=== PATIENT | female | born 1995 | race Caucasian/White ===

== ENCOUNTER → 2018-09-04 15:58 | Outpatient (CLI) | payer MEDICAID, SELFPAY ==
[2018-09-04 19:04] LABS: Chlamydia Trachomatis by PCR Negative (Negative); Neisserai gonorrhoeae by PCR Negative (Negative); Probe Check PASS; Sample Adequacy Control PASS; Specimen Processing Control PASS
[2018-09-09 12:49] LABS: HPV Reflexed? NOT INDICATED
== END ==
PROVIDERS: Visit Provider Obstetrics & Gynecology
DX: Z12.4 Encounter for screening for malignant neoplasm of cervix (principal); Z11.3 Encounter for screening for infections with a predominantly sexual mode of transmission; Z34.81 Encounter for supervision of other normal pregnancy, first trimester
CPT/HCPCS: 87491; 87591; 88175; G0145

== ENCOUNTER → 2018-09-19 15:25 | Outpatient (CLI) | payer MEDICAID, SELFPAY ==
[2016-06-07 07:05] VITALS: BMI 33.6
[2018-09-19 17:37] LABS: Absolute Lymphocyte Count 2.01 X10^3/ul (0.83-4.51); Absolute Neutrophil Count 8.5 X10^3/uL (2.0-7.7); Basophil# 0.02 X10^3/uL; Basophil% 0.2 % (0-1); Eosinophil# 0.49 X10^3/uL; Eosinophils% 4.2 % (0-5); Hematocrit 37.1 % (37-47); Hemoglobin 12.8 g/dl (12.0-15.0); Lymphocyte # 2.01 X10^3/ul (4.0); Lymphocyte % 17.3 % (19-41); Mean Corp Hgb Conc 34.5 g/gl (32-36); Mean Corpuscular Hgb 31.8 pg (27.0-32.0); Mean Corpuscular Volume 92.3 fL (81-99); Monocyte# 0.56 X10^3/uL; Monocyte% 4.8 % (0-10); Neutrophil # 8.52 X10^3/uL (2.7-7.7); Neutrophil % 73.3 % (47-70); Platelet Count 222 K/mm3 (150-450); RBC Distribution Width CV 13.5 % (11.6-14.6); RBC Distribution Width SD 45.2 fl (35.1-43.9); Red Blood Count 4.02 M/mm3 (4.2-5.4); White Blood Count 11.6 K/mm3 (4.4-11.0)
[2018-09-19 17:39] LABS: POSITIVE COUNT NO; POSITIVE DIFFERENTIAL NO; POSITIVE MORPHOLOGY NO
[2018-09-19 17:50] LABS: Color, Urine Yellow (Yellow); Glucose, Dipstick Normal (Normal); Ketone-Dipstick Negative (Negative); Leukocyte Esterase-Dipstick 25 /ul (Negative); Nitrite-Dipstick Negative (Negative); Occult Blood-Urine 25 /ul (Negative); Protein-Dipstick Negative (Negative); Specific Gravity, Urine 1.005 (1.002-1.030); Urine Bilirubin Dipstick Negative (Negative); Urine Clarity Clear (Clear); Urine Urobilinogen Normal (Normal)
[2018-09-19 17:56] LABS: Amphetamine Urine VISTA NEGATIVE (<1000 ng/mL); Barbiturate Urine VISTA NEGATIVE (< 200 ng/mL); Benzodiazepine Urine VISTA NEGATIVE (< 200 ng/mL); Cocaine Urine VISTA NEGATIVE (< 300 ng/mL); Ecstacy Urine VISTA NEGATIVE (< 500 ng/mL); Methadone Urine VISTA NEGATIVE (< 300 ng/mL); PCP Urine VISTA NEGATIVE (< 25 ng/mL); THC Urine VISTA NEGATIVE (< 50 ng/mL); Vista UDS pH Range 6
[2018-09-19 17:57] LABS: Thyroid Stim Hormone (TSH) 1.39 uIU/mL (0.358-3.74)
[2018-09-19 18:34] LABS: HIV - WCH Non-Reactive (Nonreactive)
[2018-09-21 08:27] LABS: HEPATITIS B SURFACE AG Negative (Negative); Hep C Antibodies <0.1 s/co ratio (0.0-0.9)
[2018-09-22 03:32] LABS: Prenatal RPR NONREACTIVE (NONREACTIVE)
== END ==
PROVIDERS: Visit Provider Obstetrics & Gynecology
DX: Z34.82 Encounter for supervision of other normal pregnancy, second trimester (principal)
CPT/HCPCS: 36415; 80307; 81002; 84443; 85025; 86703; 86762; 86803; 87340

== ENCOUNTER → 2018-12-29 10:45 | Outpatient (CLI) | payer MEDICAID, SELFPAY ==
[2018-12-29 14:28] LABS: Glucose Challenge Gest 1H 50g 146 mg/dL (70-140)
[2018-12-29 14:48] LABS: Hematocrit 31.5 % (37-47); Hemoglobin 10.5 g/dL (12.0-15.0); Mean Corp Hgb Conc 33.3 g/dL (32-36); Mean Corpuscular Hgb 32.5 pg (27.0-32.0); Mean Corpuscular Volume 97.5 fL (81-99); Mean Platelet Vol. 14.1 fl (6.2-12.0); Platelet Count 193 K/mm3 (150-450); RBC Distribution Width SD 46.5 fl (35.1-43.9); Red Blood Count 3.23 M/mm3 (4.2-5.4)
== END ==
PROVIDERS: Visit Provider Obstetrics & Gynecology
DX: Z34.83 Encounter for supervision of other normal pregnancy, third trimester (principal)
CPT/HCPCS: 36415; 82950; 85027

== ENCOUNTER → 2019-02-15 12:15 | Outpatient (CLI) | payer MEDICAID, SELFPAY ==
[2016-06-07 07:05] VITALS: BMI 33.6
== END ==
PROVIDERS: Referring Provider Obstetrics & Gynecology; Visit Provider Obstetrics & Gynecology
DX: Z36.85 Encounter for antenatal screening for Streptococcus B (principal)
CPT/HCPCS: 87081

== ENCOUNTER 2019-03-19 14:50 | Inpatient (IN) | payer MEDICAID, SELFPAY ==
[2016-06-07 07:05] VITALS: BMI 33.6
[2019-03-19 15:06] VITALS: BMI 35.6
[2019-03-19] MEDS: Lactated Ringers 1,000 ML 50 ML IV (15:25)
[2019-03-19 15:51] LABS: Absolute Lymphocyte Count 3.03 X10^3/uL (0.83-4.51); Absolute Neutrophil Count 11.9 X10^3/uL (2.0-7.7); Basophil# 0.06 X10^3/uL; Basophil% 0.4 % (0-1); Eosinophil# 0.27 X10^3/uL; Eosinophils% 1.7 % (0-5); Hematocrit 31.2 % (37-47); Hemoglobin 10.4 g/dL (12.0-15.0); Lymphocyte # 3.03 X10^3/ul (4.0); Mean Corp Hgb Conc 33.3 g/dL (32-36); Mean Corpuscular Hgb 31.2 pg (27.0-32.0); Mean Corpuscular Volume 93.7 fL (81-99); Monocyte# 0.65 X10^3/uL; Monocyte% 4.1 % (0-10); NRBC Flagged by Analyzer 0 % (0-5); Neutrophil # 11.86 X10^3/uL (2.7-7.7); Neutrophil % 74.3 % (47-70); Platelet Count 229 K/mm3 (150-450); RBC Distribution Width CV 13.5 % (11.6-14.6); RBC Distribution Width SD 45.6 fl (35.1-43.9); Red Blood Count 3.33 M/mm3 (4.2-5.4)
[2019-03-19] MEDS: Oxytocin 30 units/NS 500 ml 30 UNITS/500 ML IV.SOLN IV (16:00)
[2019-03-19 16:18] LABS: AST(SGOT) 12 U/L (15-37); Alanine Aminotransfer ALT/SGPT 9 U/L (13-56); Creatinine, Serum 0.64 mg/dL (0.55-1.02); EST Glomerular Filtration Rate 121 mL/min (>60); Est Glom Filt Rate - Afr Amer 146 mL/min (>60); Estimated Creatinine Clearance 113.09 ml/min
--- NOTE | 2019-03-19 16:18 | HP.PCM_ITS ---
History and Physical Date of Admission: 03/19/19 - 40 4/7 wk SROM HISTORY AND PHYSICAL EXAM History of this : 23 yo female Ab0 with EDC 03/15/2019 by 14 weeks 5 days Ultrasound, presents to Labor and Delivery for induction of labor. SROM at 40 4/7 wk EGA with ROM this afternoon. Clear fluid, gush of fluid en route to appt today. care remarkable for 1.) Prefers MD for delivery 2.) Abn Glucola, 146, 3hr GTT is NORMAL 3.) Anemic 4.) STERILIZATION REQUEST 5.) ALLERGIC to PCNs!! 6.) Smoker, ATQ. 7.) LGSIL pap at NOB appt 8.) MSAFP and CF testing declined, 9.) Gestational HTN with prior . 10.) Vitamin D deficiency, prior 11.) Precipitous labor and delivery with her first baby 12.) Pt had a sibling who was still born and had Down Syndrome Pertinent Past Medical History: Breast/Ovarian/Colon Cancers - Sister had cervical cancer, mom had recent colonoscopy Infections - Chicken pox Illnesses - none Accidents - no injuries of consequence History of Abnormal PAPS - Denies Hospitalizations - Childbirth SURGICAL HISTORY: 1. Tooth extraction at age 10-11 MENSTRUAL HISTORY: LMP Known?- Yes Amount/Duration - 1-2, Regularity - Irregular, LMP - 06/16/18, Age Onset Menarche - 12 PAST PREGNANCIES: Total Pregnancies - 3; Full Term Pregnancies - 2; Premature - 0; Abortions, Induced - 0; Abortions, Spontaneous - 0; Ectopics - 0; Multiple Births - 0; Living Children - 2 FAMILY HISTORY: Mother - FH: Diabetes mellitus type 1; Sister - Neoplasm of cervix; Maternal Grandparent - FH: Hypertension; SOCIAL HISTORY: Alcohol Use - denies drinking Smoking - smoker but trying to quit! 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 Illicit Drug Use - denies use of street drugs Sexual Activity - [employer] Residence - Lives with SO Place of - [place], [place] Spouse-Sig Other Name - Teofilo Smith Spouse-Sig Other Occupation - [employer] Children Name(s) - Kaylyn Lei Control - Allergies: Penicillins Medications: During - Vitamin D3 1,000 unit capsule; Flagyl 500 mg tablet; Renata 0.35 mg tablet; Flagyl 500 mg tablet; RepHresh vaginal gel; metronidazole 0.75 % vaginal gel; + DHA 28 mg iron-800 mcg-200 mg combo pack; Probiotic 20 billion cell capsule; ferrous sulfate 325 mg (65 mg iron) tablet Review of Systems: Non-contributory PHYSICAL EXAMINATION General Appearance: 23 yo female in no acute distress Vital Signs: AF, VSS Lungs: Regular rate and rhythm. Breasts: deferred Abdomen: gravid Pelvis: Cervix: 3/50/-3 Positive pool, positive NTZ. Presentation: cephalic Fetus: Size: AGA Movement: present Heart: present Category I tracing. 130s-140s avg variability and accels. to intermittent tracing due to maternal movement. UCs q 3-4 mins. Impression /Plan: Intrauterine . 40 4/7 wk Gross ROM noted on exam in ofc. Admit for Pitocin augmentation of labor.
[2019-03-19 17:16] LABS: International Normalized Ratio 1.1; Prothrombin Time (Protime)PT. 13.8 SECONDS (11.7-14.9)
[2019-03-19 17:17] LABS: Partial Thromboplast Time 30.7 Seconds (24.1-36.2)
[2019-03-19 17:39] LABS: Protein, Urine (Random) 40.6 mg/dL (<11.9); Protein:Creat Ratio 1410 mg/g CRE (0-200)
--- NOTE | 2019-03-19 18:19 | PN_ITS ---
Progress Note S: Rates UC pain 3/10, denies need for medication or epidural at this time; mother bedside and supportive; had previously stated preference for MD for delivery, but now OK w/CNM as prefers female for delivery; denies SORIANO, visual changes, epigastric pain or nausea O: BPs ranging from 130s/80s to low 160s/90s Labs: 03/19/19 15:25: WBC 16.0 H, RBC 3.33 L, Hgb 10.4 L, Hct 31.2 L, MCV 93.7, MCH 31.2, MCHC 33.3, RDW Std Deviation 45.6 H, RDW Coeff of Bronwyn 13.5, Plt Count 229, Immature Gran % (Auto) 0.500, Neut % (Auto) 74.3 H, Lymph % (Auto) 19.0, Metcalfe % (Auto) 4.1, Eos % (Auto) 1.7, Baso % (Auto) 0.4, Absolute Neuts (auto) 11.9 H, Absolute Lymphs (auto) 3.03, Nucleated RBC % 0 03/19/19 15:25: Blood Type A POSITIVE, Antibody Screen NEGATIVE 03/19/19 15:25: PT 13.8, INR 1.1, APTT 30.7 03/19/19 15:25: Creatinine 0.64, Estim Creat Clear Calc 113.09, Est GFR (MDRD) Af Amer 146, Est GFR (MDRD) Non-Af 121, Uric Acid 5.0, AST 12 L, ALT 9 L 03/19/19 17:10: U Random Total Protein 40.6 H, Urine Creatinine 28.80, Protein/Creatinin Ratio 1410 H FHTs: 125 baseline, moderate variability, with accels, no decels UCs: Q 2-3 Pitocin: 4Mu Cervix: 4/70/-3 per RN at 1800 Reflexes 1+ bilateral lower extremities, no clonus A: 23 yo at 40w4 d by 14 weeks 5 days Gestational hypertension Early labor Group B negative A pos, negative antibodies Cat 1 FHTs SROM at approx 1330 this afternoon - 5+ hours P: Dr. Gutierrez aware of BPs and has reviewed labs Close monitoring, BPs Q 15 Anticipated vaginal delivery
[2019-03-20] VITALS (7 sets, daily range): BP systolic 121–149; BP diastolic 69–85; PULSE 82–91; RESP 14–17; TEMP 36.3–36.7
[2019-03-20] MEDS: Carboprost Tromethamine 250 MCG/ML Ampul IM (00:24)
[2019-03-20] MEDS: Oxytocin 30 units/NS 500 ml 30 UNITS/500 ML IV.SOLN 999 UNITS IV (00:24)
--- NOTE | 2019-03-20 00:46 | PCM.PN.BLA ---
Progress Note This is a late entry for 3175 S: Feeling pressure, UTP w/contractions; denies s/s preeclampsia; using nitrous oxide for pain control, moderately effective, coping well O: BP 174/98, P 98, T 98.0F, R 24 FHTs: 115 baseline, moderate variability, with accels, no decels UCs: Q 2-3 minutes Cervix: 7.5/80/-2 A: Active labor, rapidly progressing Gestational hypertension, pressures increasing Cat 1 FHTs O: Dr. Gutierrez notified, hypertension protocol initiated Anticipate vaginal delivery within the hour
--- NOTE | 2019-03-20 00:56 | PCM.OPRPT ---
Vaginal Delivery Presented to unit previous afternoon c/o SROM at approx 1330 Method of Induction: Pitocin Amniotic Membrane Rupture Type: Spontaneous at home Rupture of Membrane time: 1330 03/19/2019 Amniotic Fluid Description: Clear Final BRIGIDA: 03/15/19 Gestational age: 40 Weeks and 5 Days Date of Procedure: 03/20/19 Pre-Operative Diagnosis: SROM; Active labor; Gestational hypertension Post-Operative Diagnosis: /rapid 2nd stage/mild shoulder dystocia; Gestational hypertension Surgery/ Procedure Performed: Spontaneous Vaginal Delivery Type of Anesthesia: None Description of Procedure: CTSP when she was 9.5/100/+1; Dr. Gutierrez notified of rising BPs and imminent delivery, enroute at this time; pt progressed rapidly to complete, with rapid of head and restitution from OA to ELINA; mild shoulder dystocia < 30 seconds, resolved with HOB down and Ora; infant placed on mothers abdomen, dried and stimulated, APGARs 8/9; cord clamped x 2 by CNM and cut by grandmother of under CNM supervision; placenta delivered quickly, spontaneously, intact, Pizarro mechanism, 3-vessel cord, central insertion; brisk bleeding noted, controlled with fundal massage, IV Pitocin bolus, and hemabate IM given by RN upon CNM order; subsequent manual exploration of uterus revealed no retained clots, firm lower segment; minor abrasion noted to posterior vaginal wall, no repair needed; EBL 300ml Raytec and instrument count correct x 2 with RN Presentation: Vertex, ELINA Placental Delivery Description: Spontaneous Placenta Disposition: [facility] Cord Vessel Description: 3 Vessels Cord Entanglement: None Estimated Blood Loss: 300 A gender: Male (1 minute): 8 (5 minute): 9 Episiotomy Description: None Laceration: None - minor posterior vaginal wall abrasion, hemostatic Medications given after delivery: IV Pitocin, IM Hemabate Complications: None - Gestational hypertension; Rapid second stage, mild shoulder dystocia <30 seconds, resolved w/HOB down and Ora
--- NOTE | 2019-03-20 01:21 | DCINST_ITS ---
Discharge Diet: No Restrictions Discharge Activity: Return to Normal Activity, No Restrictions, May Drive May resume sexual activity in: 6-8 weeks Weight Bearing Status: Weight bearing as tolerated Lifting Restrictions: Nothing heaver than the baby for 2 weeks Additional Activity Instructions:: Minimal cooking, cleaning, shopping or long car trips for two weeks; try to get at least 8 hours of sleep in 24 hours for the first two weeks - sleep when the baby sleeps Call your doctor if your incision/area has: Continuous Slow Oozing, Sudden Increased Bleeding, Increased Pain/ Swelling, Increased Redness, Foul Smelling Discharge Call your doctor if you observe: Fever of 101 or Higher, Coldness, Increased Pain, Inability to urinate, Inability to have a bowel movement, Using more than one pad per hour, Shortness of breath, Fainting spells, Chest pain, Increased palpitations (irregular heartbeat), Calf discomfort, Uncontrolled pain Additional Instructions: If you experience any of the following, contact your healthcare provider. * Bleeding that soaks a pad every hour for 2 hours * Fever 100.4 or higher * Unrelieved incision or abdominal pain * Swelling, redness, discharge or bleeding from your incision or episiotomy site * Your incision begins to separate * Problems urinating (including inability to urinate or burning while urinating). * Visual changes * Severe headache * Flu-like symptoms * Pain or redness in one of both of your breasts * Pain, warmth, tenderness or swelling in your legs, especially the calf area * Frequent nausea and vomiting * Symptoms of depression or anxiety If you experience any of the following, call 911 or go to the nearest Emergency Room. * Chest pain * Problems breathing * Seizure activity * Partial or complete paralysis of a body part, slurred speech, weakness or drooping of the face, or a sudden inability to walk or hold your balance Allergies/Adverse Reactions: Allergies Penicillins Adverse Reaction (Verified 03/19/19 15:18) Upset Stomach in childhood Medications to take at Discharge Ferrous Sulfate 324 mg PO DAILY 05/07/16 Vits [Prenatabs FA] 1 tablet PO DAILY 05/07/16 Please Follow Up With: Serena Jackson CNM When: 1 Week for blood pressure check; 6 weeks for checkup Primary Care Physician: Care Physician,No Primary [Primary Care Provider] - Test Results: Test results from this visit will be discussed in further detail at your follow- up appointment, if applicable. Proposed Discharge Date: 03/22/19
[2019-03-20] MEDS: 0.9% Saline Lock 10 ML Syringe IV (03:00)
--- NOTE | 2019-03-20 03:25 | NURSING ---
Cecelia MILLER requesting for pt BP to be obtained every hour after recovery. this RN to follow verbal orders.
[2019-03-20 04:44] LABS: Hematocrit 32.4 % (37-47); Hemoglobin 11.2 g/dL (12.0-15.0); Mean Corp Hgb Conc 34.6 g/dL (32-36); Mean Corpuscular Hgb 32.3 pg (27.0-32.0); Mean Corpuscular Volume 93.4 fL (81-99); POSITIVE COUNT YES; Platelet Count 256 K/mm3 (150-450); RBC Distribution Width CV 13.3 % (11.6-14.6); RBC Distribution Width SD 44.8 fl (35.1-43.9); Red Blood Count 3.47 M/mm3 (4.2-5.4)
[2019-03-20 04:48] LABS: Scan Indicated on CBC? Y/N YES- FLAGS NOTED; White Blood Count 33.8 K/mm3 (4.4-11.0)
[2019-03-20 05:21] LABS: Differential Comment SCANNED
--- NOTE | 2019-03-20 09:00 | PCM.PN.OB ---
Subjective: Pain well controlled, tolerating diet, passing flatus, going well; mother bedside and supportive; denies SORIANO, visual changes, nausea or epigastric pain Objective: AVSS, BPs mildly elevated Breasts soft, nipples atraumatic Fundus firm, midline, u/2, lochia scant; abdomen non tender Perineum with minimal edema, no redness or bruising noted - Physical Exam Vitals/I&O's: Vital Signs Temp Pulse Resp BP 98.1 F 89 16 126/69 H 03/20/19 08:15 03/20/19 08:15 03/20/19 08:15 03/20/19 08:15 Oxygen Delivery Method Room Air Weight: 201 lb 8.04 oz Body Mass Index (BMI) 35.6 Intake and Output for Last 24 Hours 03/18/19 03/19/19 03/20/19 23:59 23:59 23:59 Intake Total 1237.43 / 1237.43 1601.00 / 1601.00 Output Total 900 / 900 400 / 400 Balance 337.43 / 337.43 1201.00 / 1201.00 General: Alert, Oriented x3, Cooperative, No apparent distress HEENT: PERRLA, EOMI Oral: Moist Mucosa Neck: Supple Lungs: Clear to auscultation, Normal air movement Cardiovascular: Regular rate, Regular Rhythm Abdomen: Bowel Sounds Present, Soft, Non Tender, Non-Distended, Passing Flatus Extremities: No edema, Capillary Refill Less than 3 Seconds, No Calf Tenderness, Peripheral Pulses Normal Skin: No rashes Musculoskeletal: No Tenderness to Palpation of Joints or Extremities Neurological: Cranial nerves II-XII grossly intact, Deep Tendon Reflexes 2+/4 and Symmetrical, Neuro grossly intact Psych/Mental Status: Normal Affect, Appropriate, Alert and oriented to time, place, person, mood and affect Laboratory Results 03/19/19 15:25: WBC 16.0 H, RBC 3.33 L, Hgb 10.4 L, Hct 31.2 L, MCV 93.7, MCH 31.2, MCHC 33.3, RDW Std Deviation 45.6 H, RDW Coeff of Bronwyn 13.5, Plt Count 229, Immature Gran % (Auto) 0.500, Neut % (Auto) 74.3 H, Lymph % (Auto) 19.0, Hemphill % (Auto) 4.1, Eos % (Auto) 1.7, Baso % (Auto) 0.4, Absolute Neuts (auto) 11.9 H, Absolute Lymphs (auto) 3.03, Nucleated RBC % 0 03/19/19 15:25: Blood Type A POSITIVE, Antibody Screen NEGATIVE 03/19/19 15:25: PT 13.8, INR 1.1, APTT 30.7 03/19/19 15:25: Creatinine 0.64, Estim Creat Clear Calc 113.09, Est GFR (MDRD) Af Amer 146, Est GFR (MDRD) Non-Af 121, Uric Acid 5.0, AST 12 L, ALT 9 L 03/19/19 17:10: U Random Total Protein 40.6 H, Urine Creatinine 28.80, Protein/Creatinin Ratio 1410 H 03/20/19 04:25: WBC 33.8 H*, RBC 3.47 L, Hgb 11.2 L, Hct 32.4 L, MCV 93.4, MCH 32.3 H, MCHC 34.6, RDW Std Deviation 44.8 H, RDW Coeff of Bronwyn 13.3, Plt Count 256, Differential Comment SCANNED, Diff Path Review May foll Current Medications Acetaminophen (Tylenol) 1,000 mg PO Q8H PRN PRN PRN Reason: Pain Score 1-3/10 Bisacodyl (Dulcolax) 10 mg RECTAL UD PRN PRN Reason: If no BM Dibucaine (Dibucaine) 1 applic TOPICAL TID PRN PRN; Protocol PRN Reason: Discomfort Hydrocortisone (Hytone) 1 applic TOPICAL TID PRN PRN; Protocol PRN Reason: Discomfort Ibuprofen (Motrin) 600 mg PO Q6H PRN PRN PRN Reason: Pain Score 1-3/10 Methylergonovine Maleate (Methergine) 0.2 mg IM X1 PRN PRN Reason: Excess bleeding/uterine atony Senna/Docusate Sodium (Senokot-S, Hemalatha-Colace) 1 - 2 tablet PO DAILY PRN PRN PRN Reason: Constipation Simethicone (Mylicon) 80 mg PO PCHS PRN PRN Reason: Indigestion/Stomach pain Medical Necessity - Tobacco Use Smoking Status: Light Smoker (<10/day) Assessment/Plan All Active Problems Gestational [-induced] hypertension without significant proteinuria, complicating childbirth (Acute) 39 weeks gestation of (Acute) Assessment: 23 yo G3 now P3003 delivered via at 40w5d gestationn by 14 weeks 5 days US DOD, normal involution Elevated white count, otherwise normal course Plan: Discharge teaching started Repeat CBC in AM Continue routine care
[2019-03-20] MEDS: Ibuprofen 600 MG Tablet PO (20:31)
[2019-03-21 00:45] VITALS: BP 148/86; PULSE 79; RESP 17; TEMP 36.3
[2019-03-21 03:15] VITALS: BP 132/74; PULSE 74; RESP 17; TEMP 36.7
[2019-03-21 07:03] LABS: Hematocrit 30.3 % (37-47); Mean Corpuscular Hgb 31.4 pg (27.0-32.0); Mean Corpuscular Volume 95.3 fL (81-99); Platelet Count 260 K/mm3 (150-450); RBC Distribution Width CV 13.4 % (11.6-14.6); Red Blood Count 3.18 M/mm3 (4.2-5.4); White Blood Count 19.4 K/mm3 (4.4-11.0)
[2019-03-21] MEDS: Ibuprofen 600 MG Tablet PO (09:10)
[2019-03-21 09:29] VITALS: BP 137/78; PULSE 85; RESP 18; TEMP 36.3
--- NOTE | 2019-03-21 10:30 | PCM.PN.OB ---
Subjective: Feeling well, denies any pain. States is well. Has no concerns about going home. Objective: Elevated BP after physically exerting self, but back down to 130s/80s with rest. Educated on s/s of pre-eclampsia. Will call with blurred vision, headaches, RUQ pain, swelling in feet/hands/face.To return in 1 week for BP recheck and 6 weeks for PP visit. Denies hx of elevated BP. Fundus u/2, firm, normal lochia. Discussed , normal lochia changes, control(planning a BTL), and emotional changes. - Physical Exam Vitals/I&O's: Vital Signs Temp Pulse Resp BP 97.3 F L 85 18 137/78 H 03/21/19 09:29 03/21/19 09:29 03/21/19 09:29 03/21/19 09:29 Oxygen Delivery Method Room Air Weight: 91.4 kg Body Mass Index (BMI) 35.6 Intake and Output for Last 24 Hours 03/19/19 03/20/19 03/21/19 23:59 23:59 23:59 Intake Total 1237.43 / 1237.43 1601.00 / 1601.00 Output Total 900 / 900 1000 / 1000 Balance 337.43 / 337.43 601.00 / 601.00 General: Alert, Oriented x3, Cooperative HEENT: Atraumatic, PERRLA, EOMI, Normocephalic Neck: Supple, No JVD, Negative Carotid Bruits Lungs: Clear to auscultation, Normal air movement Cardiovascular: Regular rate, No murmurs Abdomen: Bowel Sounds Present, Soft, Non Tender, Passing Flatus Extremities: No edema, Capillary Refill Less than 3 Seconds Skin: No rashes, No breakdown Musculoskeletal: No Tenderness to Palpation of Joints or Extremities Neurological: Cranial nerves II-XII grossly intact Psych/Mental Status: Normal Affect, Appropriate Laboratory Results 03/21/19 06:52: WBC 19.4 H, RBC 3.18 L, Hgb 10.0 L, Hct 30.3 L, MCV 95.3, MCH 31.4, MCHC 33.0, RDW Std Deviation 46.0 H, RDW Coeff of Bronwyn 13.4, Plt Count 260 Current Medications Acetaminophen (Tylenol) 1,000 mg PO Q8H PRN PRN PRN Reason: Pain Score 1-3/10 Bisacodyl (Dulcolax) 10 mg RECTAL UD PRN PRN Reason: If no BM Dibucaine (Dibucaine) 1 applic TOPICAL TID PRN PRN; Protocol PRN Reason: Discomfort Hydrocortisone (Hytone) 1 applic TOPICAL TID PRN PRN; Protocol PRN Reason: Discomfort Ibuprofen (Motrin) 600 mg PO Q6H PRN PRN PRN Reason: Pain Score 1-3/10 Last Admin: 03/21/19 09:10 Dose: 600 mg Documented by: Methylergonovine Maleate (Methergine) 0.2 mg IM X1 PRN PRN Reason: Excess bleeding/uterine atony Ondansetron HCl (Zofran) 4 mg IV Q4H PRN PRN PRN Reason: Nausea Senna/Docusate Sodium (Senokot-S, Hemalatha-Colace) 1 - 2 tablet PO DAILY PRN PRN PRN Reason: Constipation Simethicone (Mylicon) 80 mg PO PCHS PRN PRN Reason: Indigestion/Stomach pain Sodium Chloride () 5 - 15 ml IV UD PRN PRN Reason: SALINE FLUSH Last Admin: 03/20/19 03:00 Dose: 10 ml Documented by: Medical Necessity - Tobacco Use Smoking Status: Light Smoker (<10/day) Assessment/Plan All Active Problems Gestational [-induced] hypertension without significant proteinuria, complicating childbirth (Acute) 39 weeks gestation of (Acute) A: day #2 S/P Male well P: To return to office in 1 week for BP check To call with warning signs of Pre-e Continue Will use condoms if intercourse before BTL Plan to discharge home after infant's circumcision
[2019-03-21 12:32] LABS: Pathologist Review Reviewed
== END 2019-03-21 12:35 | disposition home or self-care (01) | DRG 560 ==
PROVIDERS: Advanced Practice Midwife; Obstetrics & Gynecology; Admitting Provider Obstetrics & Gynecology; Referring Provider Obstetrics & Gynecology; Visit Provider Obstetrics & Gynecology
DX: O66.0 Obstructed labor due to shoulder dystocia (principal); O13.4 Gestational [pregnancy-induced] hypertension without significant proteinuria, complicating childbirth; Z3A.40 40 weeks gestation of pregnancy; Z37.0 Single live birth; F17.200 Nicotine dependence, unspecified, uncomplicated; O99.334 Smoking (tobacco) complicating childbirth; Z82.49 Family history of ischemic heart disease and other diseases of the circulatory system; Z83.3 Family history of diabetes mellitus; Z80.49 Family history of malignant neoplasm of other genital organs; Z82.79 Family history of other congenital malformations, deformations and chromosomal abnormalities; Z88.0 Allergy status to penicillin; D64.9 Anemia, unspecified; O99.02 Anemia complicating childbirth
CPT/HCPCS: 36415; 59025; 59050; 82565; 82570; 84156; 84450; 84460; 84550; 85025; 85027; 85610; 85730; 86850; 86900; 86901; 99218; J7120; A4216; G0378

== ENCOUNTER → 2019-03-29 14:20 | Outpatient (CLI) | payer MEDICAID, SELFPAY ==
[2019-03-19 15:06] VITALS: BMI 35.6
[2019-03-29 16:01] LABS: Protein:Creat Ratio 180 mg/g CRE (0-200)
[2019-03-29 17:42] LABS: Hematocrit 35.8 % (37-47); Hemoglobin 11.7 g/dL (12.0-15.0); Mean Corp Hgb Conc 32.7 g/dL (32-36); Mean Corpuscular Hgb 31.4 pg (27.0-32.0); Platelet Count 403 K/mm3 (150-450); RBC Distribution Width CV 13.6 % (11.6-14.6); RBC Distribution Width SD 47.8 fl (35.1-43.9); Red Blood Count 3.73 M/mm3 (4.2-5.4); White Blood Count 11.7 K/mm3 (4.4-11.0)
[2019-03-29 17:50] LABS: Prothrombin Time (Protime)PT. 13.3 SECONDS (11.7-14.9)
[2019-03-29 17:51] LABS: Partial Thromboplast Time 34.5 Seconds (24.1-36.2)
[2019-03-29 18:10] LABS: ALB/GLOB Ratio 0.8 RATIO (0.9-2.4); AST(SGOT) 12 U/L (15-37); Alanine Aminotransfer ALT/SGPT 21 U/L (13-56); Albumin, Serum 3.1 g/dL (3.2-5.0); Alkaline Phosphatase 122 U/L (45-117); Anion Gap 8 (5-15); BUN 7 mg/dL (7-18); BUN/Creat Ratio 8.7 RATIO (10-20); Calcium,Total 8.3 mg/dL (8.5-10.1); Chloride 108 mmol/L (98-107); Creatinine, Serum 0.81 mg/dL (0.55-1.02); EST Glomerular Filtration Rate 93 mL/min (>60); Est Glom Filt Rate - Afr Amer 112 mL/min (>60); Glucose 102 mg/dL (74-106); Potassium 3.1 mmol/L (3.5-5.1); Protein, Total 7.1 g/dL (6.4-8.2); Sodium Level 141 mmol/L (136-145); Uric Acid 7.3 mg/dL (2.6-6.0)
== END ==
PROVIDERS: Visit Provider Advanced Practice Midwife
DX: I10 Essential (primary) hypertension (principal)
CPT/HCPCS: 36415; 80053; 82570; 84156; 84550; 85027; 85610; 85730

== ENCOUNTER → 2019-05-10 14:40 | Outpatient (CLI) | payer MEDICAID, SELFPAY | PROVIDERS: Referring Provider Advanced Practice Midwife; Visit Provider Advanced Practice Midwife | DX: R87.612 Low grade squamous intraepithelial lesion on cytologic smear of cervix (LGSIL) (principal) ==

== ENCOUNTER → 2019-06-15 15:55 | Outpatient (CLI) | payer MEDICAID, SELFPAY ==
--- NOTE | 2019-06-15 | IMM_PTH ---
PATIENT: EDVIN KWAN LOC: [facility] U#:[id number] AGE/SX: 29/F ROOM: RE06/15/[address]: Dr. Liban Gutierrez MD : 1995 BED: DIS: SPEC #: [id number] RECD: 06/19/19 13:46 STATUS: GIOVANI REQ #: [id number] MARYAM: 06/15/19 00:[address]: Liban Gutierrez DEPT: IMMUNOHISTOCHEMISTRY RECD BY: Cass Herron ENTERED: 06/19/19 13:47 SP TYPE: IMMUNO OTHR DR: No Primary Care Phys Tissues: A - Uterine cervix, NOS Procedures: p16 (initial) KI-67 (add) PHYSICIAN & INSTITUTION [place] [id number] SPECIMEN INFORMATION: Tissue Source: A - Cervical biopsy Clinical Info: [facility] Specimen Number: [id number] CPT code: 50615, 62632 METHODOLOGY: Deparaffinized sections of prefer/formalin-fixed tissue or PAP/DQ stained slides are incubated with monoclonal/polyclonal antibodies/oligonucleotide probes. Localization is made via biotin free immunoperoxidase method. Appropriate controls are performed and reacted as expected. Results on target cell population are indicated in the following table: RESULTS: ANTIBODY / CLONE RESULT Block A P16 (E6H4) positive, patchy staining Ki-67 (30-9) positive, low These tests were developed and their performance characteristics determined by [facility]. They may not have been cleared or approved by the U.S. Food and Drug Administration. The FDA has determined that such clearance or approval is not necessary. The above immunohistochemical/dualISH markers are ordered and reviewed by the Pathologist. INTERPRETATION: A. Cervical biopsy: Mild squamous dysplasia. SJ:terri 06/20/19
--- NOTE | 2019-06-15 14:15 | CER_PTH ---
PATIENT: EDVIN KWAN LOC: [facility] U#:[id number] AGE/SX: 29/F ROOM: RE06/15/[address]: Dr. Liban Gutierrez MD : 1995 BED: DIS: SPEC #: [id number] RECD: 06/15/19 15:46 STATUS: GIOVANI RESkylar #: [id number] MARYAM: 06/15/19 14:[address]: Liban Gutierrez DEPT: SURGICAL PATHOLOGY RECD BY: Teofilo Carlson ENTERED: 06/18/19 08:47 SP TYPE: CERV OTHR DR: No Primary Care Phys Tissues: A - Uterine cervix, NOS B - Uterine cervix, NOS Procedures: Surgery Specimen Level IV HEADER OPERATION: Colposcopy PRE-OP DIAGNOSIS: LGSIL TISSUE SUBMITTED: A - Cervical biopsy four quad, B - [facility] MICROSCOPIC DIAGNOSIS A. 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 Acute and chronic inflammation. See comment. B. ECC: Fragments of benign ecto- and endocervical epithelium, blood and mucous, negative for dysplasia. STEVEN:terri 06/19/19 COMMENT A. Immunohistochemistry ([id number]) for surrogate HPV marker (p16) supports the above diagnosis. MICROSCOPIC DESCRIPTION Slides are reviewed. GROSS DESCRIPTION A - Received in fixative is one container labeled with the patient's name and designated cervical biopsy four quadrant. The specimen consists of multiple irregular fragments of light adams soft tissue that in aggregate measure 1 x 1 x 0.1 cm. The specimen is totally submitted in one cassette. B - Received in fixative is one container labeled with the patient's name and designated ECC. The specimen consists of multiple fragments of hemorrhagic mucoid tissue that in aggregate measure 1.5 x 1 x 0.2 cm. The specimen is totally submitted in one cassette. / STEVEN:terri 06/18/19 TC:5 CPT: 55699 x2
== END ==
PROVIDERS: Referring Provider Obstetrics & Gynecology; Visit Provider Obstetrics & Gynecology
DX: R87.612 Low grade squamous intraepithelial lesion on cytologic smear of cervix (LGSIL) (principal)
CPT/HCPCS: 88305; 88341; 88342

== ENCOUNTER 2019-11-26 10:17 | Day surgery (SDC) | payer MEDICAID, SELFPAY ==
[2019-11-21 16:48] LABS: Hematocrit 40.2 % (37-47); Hemoglobin 12.9 g/dL (12.0-15.0); Mean Corp Hgb Conc 32.1 g/dL (32-36); Mean Corpuscular Hgb 29.2 pg (27.0-32.0); Platelet Count 308 K/mm3 (150-450); RBC Distribution Width CV 15.7 % (11.6-14.6); RBC Distribution Width SD 51.8 fl (35.1-43.9); Red Blood Count 4.42 M/mm3 (4.2-5.4); White Blood Count 12.6 K/mm3 (4.4-11.0)
[2019-11-21 17:15] LABS: Partial Thromboplast Time 33.9 Seconds (24.1-36.2)
[2019-11-21 17:42] LABS: Prothrombin Time (Protime)PT. 12.8 SECONDS (11.7-14.9)
[2019-11-21 18:01] LABS: Internal QC Validated? YES +Cl - CLEAR BKGD; Pregnancy, Serum, hCG Quali. NEGATIVE Negative
--- NOTE | 2019-11-25 21:45 | PCM.HP.BLA ---
History and Physical Date of Admission: 11/26/19 Surgical History and Physical Ilana Bush, a 24 year old female 3 0 0 0 3, presents for L/S jesusita salpingectomy, D and C, H/S, LEEP on November 26, 2019 at 2:00. -- Irregular Menses; Desires Sterilization; MADDY I -- Continues with some light intermittent spotting. Bleeding and Pain which began Several years. Ilana claims it started gradually and has been present worsening every month. It occurs all the time. It is located in the vagina.; It is located in the lower abdomen. Ilana characterizes it to be upwards to the back. Ilana characterizes the quality cramping.; Ilana characterizes the quality sharp.; Ilana characterizes the quality stabbing.; Ilana characterizes the quality heavy. Severity is moderate and not improving; Additional comments are: Wants Hysterectomy if this does not help. MEDICATIONS HISTORY: Current medications prescribed by our practice are: 1. Bactrim DS 800 mg-160 mg tablet, One pill by mouth twice a day for 7 days 2. ferrous sulfate 325 mg (65 mg iron) tablet, 1 po daily 3. Sprintec (28) 0.25 mg-35 mcg tablet, One pill by mouth once a day Patient is also takin. norethindrone (contraceptive) 0.35 mg tablet, One pill by mouth once a day ALLERGIES: No Known Drug Allergies, Penicillins and Intolerance-unknown Infections - Chicken pox Illnesses - none Accidents - no injuries of consequence Hospitalizations - Childbirth Review of Systems: GENERAL - Denies fever, or chills SKIN - Denies skin changes EYES - Denies visual changes EARS - Denies difficulty hearing NOSE - Denies nasal congestion or bleeding MOUTH - Denies sore throat or difficulty swallowing NECK - Denies pain or swelling RESPIRATORY - Denies shortness of breath or wheezing CARDIOVASCULAR - Denies palpitations or chest pain GASTROINTESTINAL - Denies nausea, vomiting, diarrhea, constipation GENITOURINARY - Denies dysuria, frequency of urination, incontinence of urine MUSCULOSKELETAL - Denies joint or muscle pain NEUROLOGICAL - Denies localized numbness or weakness PSYCHIATRIC - Denies depression or anxiety ENDOCRINE - Denies heat or cold intolerance, weight loss or gain HEMATO-IMMUNOLOGIC - Denies excessive bleeding with cuts SOCIAL HISTORY: Alcohol Use - denies drinking Smoking - used to smoke but quit 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 Illicit Drug Use - denies use of street drugs Sexual Activity - ACTIVE [employer] Residence - Lives with SO Place of - [place], [place] Spouse-Sig Other Name - Teofilo Smith Spouse-Sig Other Occupation - [employer] Children Name(s) - QuiqueKaylyn david (SHM), Ninoska (KW) Control - Control Pills FAMILY HISTORY: MENSTRUAL HISTORY: LMP Known?- Definite Amount/Duration - 10-14 days, Regularity - Irregular, Frequency - variable days, LMP - 11/17/19, Age Onset Menarche - 12 PAST PREGNANCIES: Total Pregnancies - 3; Full Term Pregnancies - 3; Premature - 0; Abortions, Induced - 0; Abortions, Spontaneous - 0; Ectopics - 0; Multiple Births - 0; Living Children - 3 SURGICAL HISTORY: 1. 11/21/2019 b/l toe ; Dr Clifton 2. Tooth extraction at age 10-11 PHYSICAL EXAM BP- 126/82 Sitting, Right arm, large cuff Weight- 194.19935 lbs Height- 63.00 inch BMI:34.44 CONSTITUTIONAL - NAD, well nourished, and well developed SKIN - No rash, lesions, or ulcers HEENT - Normocephalic, PERRLA, EOMI NECK - No nodes, no nuchal rigidity and thyroid normal size and texture LYMPH NODES - Palpation of lymph nodes in neck and groins within normal limits LUNGS - CTA x2 without wheezes, crackles or rales CARDIAC - Regular rate and rhythm without rubs, murmurs, or gallops BREAST - No dominant masses, no tenderness, no axillary adenopathy, no nipple discharge, no skin changes ABDOMEN - Without hepatosplenomegaly, distention, masses, rebound, or guarding; normal bowel sounds; no hernias EXTREMITIES - No edema or calf tenderness NEUROLOGICAL - Cranial nerves II-XII grossly intact PSYCHIATRIC - A and O to time, place, person, mood and affect External Genital Vagina - non-tender without lesions Urethra/Urethral Meatus - non-tender Bladder - non-tender Vagina - vaginal mario are pink and moist without loss of rugae and no evidence of atropy Cervix - without cervical motion tenderness and has normal size and features without evident lesions Uterus - 5-6 cm in size, mobile and nontender Adnexa - clear without massess or tenderness ASSESSMENT/PLAN: 1. Encounter For Sterilization, Irregular Menstrual Cycle and Mild Dysplasia Of Cervix Irregular menses likely due to mini-pill. Will switch to combination OCP. Also desires tubal. Given this and MADDY I on colposcopy, will proceed with L/S jesusita salpingectomy, D and C, H/S, LEEP. Discussed RBAs and all questions answered.
--- NOTE | 2019-11-26 | IMM_PTH ---
PATIENT: EDVIN KWAN LOC: [facility] [place] U#:[id number] AGE/SX: 24/F ROOM: RE11/26/[address]: Dr. Liban Gutierrez MD : 1995 BED: DIS: 11/26/2019 SPEC #: [id number] RECD: 11/28/19 13:21 STATUS: GIOVANI REQ #: [id number] MARYAM: 11/26/19 00:[address]: Liban Gutierrez DEPT: IMMUNOHISTOCHEMISTRY RECD BY: Cass Herron ENTERED: 11/28/19 13:23 SP TYPE: IMMUNO OTHR DR: No Primary Care Phys Tissues: B - Endometrium, NOS E - UTERINE CERVIX LEEP Procedures: CK14 (add) CK20 (add) CK5-6 (add) CK7 (add) KI-67 (add) P16 (add) Vimentin (add) P40 (add) KI-67 (initial) PHYSICIAN & INSTITUTION [place] [id number] SPECIMEN INFORMATION: Tissue Source: B - Endometrial curettings, E - Ectocervical LEEP Clinical Info: Sterilization, CIN1 Specimen Number: [id number] B, E1-3 CPT code: 23518 x2, 78982 x11 METHODOLOGY: Deparaffinized sections of prefer/formalin-fixed tissue or PAP/DQ stained slides are incubated with monoclonal/polyclonal antibodies/oligonucleotide probes. Localization is made via biotin free immunoperoxidase method. Appropriate controls are performed and reacted as expected. Results on target cell population are indicated in the following table: RESULTS: ANTIBODY / CLONE RESULT Block B Vimentin (V9) negative CK5-6 (D5 & 1684) positive P40 (BC28) negative CK14 (LL002) negative Ki-67 (30-9) positive, 80% decidual CK7 (OV-TL12/30) positive CK20 (KS20.8) negative P16 positive, focal, patchy Block E1 P16 (E6H4) negative Ki-67 (30-9) negative Block E2 P16 (E6H4) positive, focal, patchy Ki-67 (30-9) positive, low Block E3 P16 (E6H4) positive, focal, patchy Ki-67 (30-9) positive, low These tests were developed and their performance characteristics determined by [facility]. They may not have been cleared or approved by the U.S. Food and Drug Administration. The FDA has determined that such clearance or approval is not necessary. The above immunohistochemical/dualISH markers are ordered and reviewed by the Pathologist. INTERPRETATION: B. Endometrial curettings: Consistent with focal decidual change. Fragments of ectocervix with HPV change. E. Ectocervical LEEP: Focal HPV change present. AM:terri 11/29/19 Case has been reviewed in consultation with Dr. Chang who concurs with the above diagnosis. IDC:SJ
[2019-11-26 11:12] LABS: Internal QC Validated? YES +Cl - CLEAR BKGD; Pregnancy, Urine Negative Negative
[2019-11-26 11:17] VITALS: BP 134/87; PULSE 101; RESP 18; TEMP 37.4; O2SAT 100; BMI 33.5
--- NOTE | 2019-11-26 11:26 | DCINST_ITS ---
Discharge Diet: No Restrictions - Increase fluid intake for the next 48 hours. Discharge Activity: Return to Normal Activity, May Drive - when you are no longer taking pain/narcotic medicines., May Shower, May Take a Tub Bath May resume sexual activity in: 3 weeks Additional Activity Instructions:: Ambulate often the next week after surgery. Nothing in the vagina for 5 days. Call your doctor if your incision/area has: Continuous Slow Oozing, Sudden Increased Bleeding, Increased Pain/ Swelling, Increased Redness, Foul Smelling Discharge Call your doctor if you observe: Fever of 101 or Higher, Inability to urinate, Inability to have a bowel movement, Using more than one pad per hour Allergies/Adverse Reactions: Allergies Penicillins Adverse Reaction (Verified 11/14/19 15:48) Upset Stomach in childhood Medications to take at Discharge Norgestimate-Ethinyl Estradiol [Sprintec 28 Day Tablet] 1 ea PO DAILY 11/14/19 Smz/Tmp Ds [Bactrim Ds] 1 tab PO BID 11/14/19 Oxycodone [Oxyir] 5 mg PO Q6H PRN PRN 7 Days #10 tablet 11/26/19 The following prescriptions were given: Oxycodone [Oxyir] 5 mg PO Q6H PRN PRN 7 Days #10 tablet PRN Reason: Pain Score 6-10/10 Transmission Status: Sent to [id number] Primary Care Physician: Care Physician,No Primary [Primary Care Provider] - Test Results: Test results from this visit will be discussed in further detail at your follow- up appointment, if applicable. Please Follow Up With: Liban Gtuierrez MD - [phone] When: 3 to 4 weeks
--- NOTE | 2019-11-26 11:27 | PCM.OPRPT ---
Report of Operation Date of Procedure: 11/26/19 Pre-Operative Diagnosis: Desires Permanent Sterilization, Irregular Cycles, Mild Cervical Dysplasia Post-Operative Diagnosis: Desires Permanent Sterilization, Irregular Cycles, Mild Cervical Dysplasia Surgery/Procedure Performed:: Laparoscopic Bilateral Salpingectomy, Diagnostic Hysteroscopy, Dilation and Curettage, LEEP Conization of the Cervix Description of Surgical Findings:: Normal-appearing pelvis and cervix kosher dietary service supervisor: Akila Murdock Type of Anesthesia:: General - Endotracheal Anesthesiologist: Allen Cartagena Specimen's removed: Bilateral fallopian tubes, endometrial curettings, ectocervix, endocervix, endocervical curettings after LEEP Drains: None Estimated Blood Loss (mL): Minimal Fluids Replaced: Crystalloid Description of Procedure: Surgeon: Liban Gutierrez MD, FACOG Indications: This is a 24 year old patient who has the above diagnosis. She has considered sterilization for quite some time. She is aware of the permanent nature of the procedure, the failure rate of 1-2%, and the availability of other nonpermanent control options. All questions were answered to consider the patient well-informed. Procedure: The patient was taken to the operating room where after induction of general anesthesia, she was placed in the dorsolithotomy position and prepped and draped in the usual sterile fashion. The bladder was drained of approximately 150 cc of clear yellow urine with a catheter. Anterior cervix was grasped with the tenaculum. Conn cannula was placed and attention was turned toward the laparoscopic portion of the procedure. Approximately 20 cc of half percent ropivacaine was injected subumbilically, suprapubically and midway between. A 5 mm bladeless trocar was placed subumbilically and intraperitoneal placement confirmed. After CO2 insufflation was complete, a 5 mm bladeless trocar was introduced suprapubically. The above findings were noted. A 5 mm bladeless port was then placed midway between these 2 ports for tubal manipulation. Each fallopian tube was identified to its fimbriated end and an Enseal device was used to divide the mesosalpinx to the uterus. Tubes were removed through the lower 5 mm port. The peritoneal cavity and upper abdomen were examined and noted to be normal. Photographs were taken. Laparoscopic instruments with as much CO2 gas as possible were removed and incisions were closed with interrupted 4-0 Monocryl suture and Dermabond. Vaginal instruments were removed. Attention was turned toward the hysteroscopic portion of the procedure. Anterior cervix was grasped with the tenaculum and dilated to about 4-5 mm. A 3 mm hysteroscope was placed in the uterus of the above findings were noted. Cervix was dilated to about 7-8 mm and uterus was gently curetted removing all contents. Hysteroscope was reinserted and all material was noted to be removed. In the course of the procedure approximately 100 cc of saline distending media was used and virtually all of this was recovered. Attention was turned toward the LEEP portion of the procedure. Cervix was visualized and painted with Lugol's solution. The ectocervix was then removed to a depth of 5 mm on a setting of 50 W cutting and endocervix removed to a depth of 7 mm on a setting of 50 W cutting. Endocervical curettings were obtained. Base of the cone was then cauterized a setting of 50 W coagulation and Monsel's was painted across the LEEP base. The patient tolerated the procedure well was taken to recovery room in satisfactory condition and sponge instrument and needle counts were all reportedly correct. Estimated blood loss for the case was minimal. Cefotan 2 g IV was given prior to being the operative procedure. There were no apparent complications of the surgery. Grafts/Implants Used: None - Complications None - Admit VTE Documentation VTE Present on Admission: Yes VTE Mechan Device Prophylaxis: SCD's
[2019-11-26] MEDS: Iodine/Potassium Iodide 14ML Bottle 1 DRP TOPICAL (11:36)
[2019-11-26] MEDS: Ropivacaine 0.5% 30 ML Vial (11:36)
--- NOTE | 2019-11-26 11:55 | FALS_PTH ---
PATIENT: EDVIN KWAN LOC: [facility] [place] U#:[id number] AGE/SX: 24/F ROOM: RE11/26/[address]: Dr. Liban Gutierrez MD : 1995 BED: DIS: 11/26/2019 SPEC #: [id number] RECD: 11/26/19 14:01 STATUS: GIOVANI MELISSA #: [id number] MARYAM: 11/26/19 11:[address]: Liban Gutierrez DEPT: SURGICAL PATHOLOGY RECD BY: Teofilo Carlson ENTERED: 11/27/19 08:01 SP TYPE: FALL TUBES OTHR DR: No Primary Care Phys Tissues: A - Fallopian tube B - Endometrium, NOS C - Endocervical D - Endocervical E - Uterine cervix, NOS Procedures: Surgery Specimen Level II Surgery Specimen Level IV Surgery Specimen Level V HEADER OPERATION: Laparoscopic bilateral salpingectomy, hysteroscopy, D & C, LEEP PRE-OP DIAGNOSIS: Sterilization, MADDY 1 TISSUE SUBMITTED: A - Bilateral fallopian tubes, B - Endometrial curettings, C - Endocervical curettings after LEEP, D - Endocervical LEEP, E - Ectocervical LEEP MICROSCOPIC DIAGNOSIS A. Right and left fallopian tubes, bilateral salpingectomies: Two complete segments of fallopian tubes with no pathologic change. B. Endometrium, curettings: Proliferative endometrium. Mild chronic endometritis. Focal decidual change. Fragments of ectocervix with HPV change. C. Endocervix, curettings: Scant strips of benign superficial endocervix. No evidence of dysplasia. D. Endocervix, LEEP conization. Mild chronic inflammation. No evidence of dysplasia. E. Ectocervix, LEEP conization: Focal HPV change present. Mild chronic inflammation and regenerative change. Margins of excision are free of dysplasia. See comment. AM:terri 11/28/19 COMMENT B. Immunohistochemistry ([id number]) supports the above diagnosis. E. Results from immunohistochemistry ([id number]) for surrogate HPV marker (p16) will be reported separately. Case has been reviewed in consultation with Dr. Chang who concurs with the above diagnosis. IDC:SJ MICROSCOPIC DESCRIPTION Slides are reviewed. GROSS DESCRIPTION A - Received in fixative is one container labeled with the patient's name and designated bilateral fallopian tubes. The specimen consists of bilateral fallopian tubes including fimbrial ends measuring 5.5 cm in length and 0.5 cm in diameter and 6 cm in length and 0.5 cm in diameter. The fallopian tubes are not identified as right or left. Sections reveal unremarkable cut surfaces. Cracking Still Operator sections are submitted in two cassettes with each cassette containing one fallopian tube. B - Received in fixative is one container labeled with the patient's name and designated endometrial curettings. The specimen consists of multiple fragments of hemorrhagic soft tissue that in aggregate measure 3 x 2.5 x 0.2 cm. The specimen is totally submitted in one cassette. C - Received in fixative is one container labeled with the patient's name and designated endocervical curettings after LEEP. The specimen consists of multiple fragments of hemorrhagic soft tissue that in aggregate measure 0.6 x 0.5 x 0.1 cm. The specimen is totally submitted in one cassette. D - Received in fixative is one container labeled with the patient's name and designated endocervical LEEP. The specimen consists of a strip of adams soft tissue measuring 1.5 x 0.2 x 0.1 cm. The specimen is inked. No lesion is identified. The entire specimen is submitted in one cassette. It will be serially sectioned at the time of embedding. E - Received in fixative is one container labeled with the patient's name and designated ectocervical LEEP. The specimen consists of three pieces of adams, indurated tissue measuring 1.5 x 1 x 0.4 cm and 1.5 x 1 x 0.5 cm and 2 x 0.5 x 0.2 cm. No mucosal lesion is identified. Nonmucosal surface is inked black. All three pieces are serially sectioned. The entire specimen is submitted in three cassettes with each cassette containing one piece. / SJ:rg 11/27/19 TC:3 CPT: 15798 x2, 41042 x2, 02020 x2
[2019-11-26] MEDS: FERRIC SUBSULFATE 8 GM SOLN (12:50)
[2019-11-26 13:06] VITALS: BP 134/87; BP 138/79; PULSE 108; RESP 16; TEMP 36.8; O2SAT 95
[2019-11-26 13:15] VITALS: BP 125/79; BP 134/87; PULSE 92; RESP 16; O2SAT 96
[2019-11-26 13:23] VITALS: BP 121/85; BP 134/87; PULSE 90; RESP 16; TEMP 36.6; O2SAT 95
[2019-11-26] MEDS: oxyCODONE 5 MG Tablet PO (13:51)
[2019-11-26 14:45] VITALS: BP 114/77; BP 134/87; PULSE 77; RESP 18; TEMP 36.8; O2SAT 100
== END 2019-11-26 14:54 | disposition home or self-care (01) ==
LOC: SDC 10:17 → AC 10:18
PROVIDERS: Anesthesiology; Referring Provider Obstetrics & Gynecology; Visit Provider Obstetrics & Gynecology
PROC: (CPT 58661; principal; 2019-11-26 11:40)
DX: Z30.2 Encounter for sterilization (principal); N87.0 Mild cervical dysplasia; N92.6 Irregular menstruation, unspecified; Z87.891 Personal history of nicotine dependence
CPT/HCPCS: 00840; 57522; 58558; 58661; 36415; 81025; 84703; 85027; 85610; 85730; 86850; 86900; 86901; 87635; 88302; 88305; 88307; 88341; 88342; 94799; J7120; C1760; J2405; U0003